=== PATIENT | female | born 1970 | race Caucasian/White ===

== ENCOUNTER 2016-11-02 14:43 | Outpatient (CLI) | payer OTHER ==
--- NOTE | 2016-11-02 16:55 | DIAGNOSTIC IMAGING REPORT ---
PROCEDURE: MG BILATERAL SCREENING W/CAD INDICATION: . Family history (aunt and cousin) TECHNIQUE: Bilateral CC and MLO digital views. COMPARISON: Mammograms 10/07/2015, 08/06/2014, mammogram and left breast ultrasound 03/24/2014 . FINDINGS: Computer-aided detection applied. Dense and nodular pattern with diffuse microcalcifications consistent with sclerosing adenosis and milk of calcium. No change. IMPRESSION: 1. Stable diffuse microcalcifications consistent with sclerosing adenosis and milk of calcium. RESULT CODE: 2- Benign finding(s). A. A negative report should not delay biopsy if a dominant or clinically suspicious mass is present. 10-15% of cancers are not identified by x-ray. B. A negative report may reinforce clinical impression. C. Adenosis and dense breasts may obscure an underlying neoplasm. D. False positive reports average 6-10%. E.. A yearly screening mammogram is recommended. A reminder letter will be scheduled.
== END 2016-11-02 23:00 ==
LOC: MAM SRH 14:43
DX: Z12.31 Encounter for screening mammogram for malignant neoplasm of breast (principal); Z80.3 Family history of malignant neoplasm of breast